=== PATIENT | female | born 1990 | race Two or more races ===

== ENCOUNTER 2018-01-22 14:22 | Emergency (ER) | payer MEDICAID, OTHER ==
[~2018-01-22] VITALS: Ht 154.9 cm; Wt 77.6 kg
[2018-01-22 15:00] LABS: Basophils # (auto) 0 uL; Basophils % (auto) 0.3 % (0.0-2.0); Eosinophils # (auto) 0 uL; Eosinophils % (auto) 0.3 % (0.0-7.0); Hematocrit 43.1 % (36.0-46.0); Hemoglobin 14.2 g/dL (12.2-16.2); Lymphocytes # (auto) 2.6 uL; Lymphocytes % (auto) 17.9 % (10.0-50.0); Mean Corpuscular Hemoglobin 28.9 pg (28.0-32.0); Mean Corpuscular Volume 87.5 fL (80.0-100.0); Monocytes # (auto) 0.8 uL; Monocytes % (auto) 5.5 % (0.0-12.0); Nucleated Red Blood Cells % 0.1 %; Platelet Count (auto) 346 10^3/uL (140-450); Red Blood Cells 4.92 10^6/uL (4.0-5.20); Red Cell Distribution Width 13.5 % (11.8-14.3); White Blood Cell 14.5 10^3/uL (4.4-10.8)
[2018-01-22 15:54] VITALS: BP 134/68
[2018-01-22 16:34] LABS: Urine Bacteria FEW /hpf (None Seen); Urine Blood 2+ /uL (Negative); Urine Specific Gravity 1.007 (1.001-1.035); Urine WBC 17 /hpf (0 - 5)
== END 2018-01-22 17:20 | disposition home or self-care (01) ==
LOC: ER 14:27
DX: O20.9 Hemorrhage in early pregnancy, unspecified (principal); O23.41 Unspecified infection of urinary tract in pregnancy, first trimester; Z3A.01 Less than 8 weeks gestation of pregnancy
CPT/HCPCS: 36415; 76801; 76817; 81001; 84702; 85025

== ENCOUNTER 2023-05-16 15:35 | Emergency (ER) | payer MEDICAID ==
[~2023-05-16] VITALS: Ht 157.5 cm; Wt 70.0 kg
[2023-05-16] MEDS: SODIUM CHLORIDE 0.9% 1,000 ML IV ONE ×2 (16:24→22:02)
[2023-05-16 16:44] LABS: Basophils # (auto) 0 10 ^3/uL (0-0.2); Basophils % (auto) 0.3 % (0.0-2.0); Eosinophils # (auto) 0 10 ^3/uL (0-0.8); Hematocrit 40.8 % (36.0-46.0); Hemoglobin 13.6 g/dL (12.2-16.2); Lymphocytes # (auto) 0.4 10 ^3/uL (0.4-5.4); Lymphocytes % (auto) 5.8 % (10.0-50.0); Mean Corpuscular Hgb Conc. 33.4 g/dL (32.0-36.0); Mean Corpuscular Volume 86.7 fL (80.0-100.0); Monocytes # (auto) 0.3 10 ^3/uL (0-1.3); Monocytes % (auto) 4.4 % (0.0-12.0); Neutrophils # (auto) 6.6 10 ^3/uL (1.6-8.6); Neutrophils % (auto) 89.5 % (37.0-80.0); Red Cell Distribution Width 13.3 % (11.8-14.3); White Blood Cell 7.4 10^3/uL (4.4-10.8)
[2023-05-16 16:54] LABS: Chloride 110 mmol/L (98-107); Potassium 3.5 mmol/L (3.5-5.1); Sodium 138 mmol/L (136-145)
[2023-05-16 16:55] LABS: Anion Gap 4 (5-15); Calcium 8.1 mg/dL (8.7-10.4); Carbon Dioxide 24 mmol/L (20-30)
[2023-05-16 17:00] LABS: BUN/Creatinine Ratio 16.9 (10.0-20.0); Blood Urea Nitrogen 10 mg/dL (9-23); Glucose 102 mg/dL (74-106)
[2023-05-16] MEDS ORDERED: ZOFR4T PO (21:25)
[2023-05-16] MEDS ORDERED: CIPR-173 PO (21:25)
[2023-05-16 22:01] VITALS: BP 99/56; PULSE 85; RESP 16; TEMP 98.6; O2SAT 96
[2023-05-16] MEDS: ONDANSETRON HCL 4 MG/2 ML VIAL IV ONE (22:03)
[2023-05-16] MEDS: KETOROLAC TROMETH 30 MG/ML 1ML VIAL IV ONE (22:03)
== END 2023-05-16 22:47 | disposition home or self-care (01) ==
LOC: ER 15:35 → EDBD 15:35 → EDUNIT# 15:35 → ER 22:47
DX: I88.0 Nonspecific mesenteric lymphadenitis (principal); E86.0 Dehydration; Z79.899 Other long term (current) drug therapy
CPT/HCPCS: 36415; 74176; 76705; 80048; 83605; 83690; 85025; 96361; 96374; 96375; 99285; J1885; J2405; J7030